=== PATIENT | male | born 1980 | race Caucasian/White ===

== ENCOUNTER 2017-07-22 14:24 | Emergency (ER) | END 2017-07-22 17:04 | disposition home or self-care (01) ==

== ENCOUNTER 2018-02-06 20:19 | Emergency (ER) | END 2018-02-07 02:55 | disposition home or self-care (01) ==

== ENCOUNTER 2019-02-24 16:02 | Emergency (ER) | payer SELFPAY ==
[~2019-02-24] VITALS: Ht 188 cm; Wt 132.6 kg
[~2019-02-24 16:02] MED LIST: CYCL10TA7 PO; LORA-441 PO
[2019-02-24 16:12] VITALS: BP 153/19; PULSE 89; RESP 20; Ht 188 cm; Wt 132.6 kg
--- NOTE | 2019-02-24 16:58 | ERD ---
ER Documentation Chief Complaint Chief Complaint Pt reports R arm nubness after sleeping, full ROM HPI 38-year-old male, presents the emergency department complaining of anxiety after experiencing right arm numbness for approximately 15 minutes after waking up. The patient denies weakness, he refers good recovery but he is requesting to have his heart and blood sugar checked out. He denies chest pain, no shortness of breath, no headache, no fever or chills. ROS All systems reviewed and are negative except as per history of present illness. Medications Home Meds Active Scripts Lorazepam* (Ativan*) 0.5 Mg Tablet, 0.5 MG PO DAILY PRN for ANXIETY, #10 TAB Prov:LATONIA BARKLEY MD 02/24/19 Cyclobenzaprine Hcl* (Cyclobenzaprine Hcl*) 10 Mg Tablet, 10 MG PO TID, #15 TAB Prov:EMMETT DOMINIQUE 02/07/18 Allergies Allergies: Coded Allergies: No Known Allergy (Unverified , 02/07/18) PMhx/Soc History of Surgery: No Anesthesia Reaction: No Hx Neurological Disorder: No Hx Respiratory Disorders: No Hx Cardiac Disorders: No Hx Psychiatric Problems: No Hx Miscellaneous Medical Probl: No Hx Alcohol Use: No Hx Substance Use: No Hx Tobacco Use: No Smoking Status: Never smoker FmHx Family History: No diabetes, No coronary disease Physical Exam Vitals Vital Signs Date Temp Pulse Resp B/P (MAP) Pulse Ox O2 O2 Flow FiO2 Time Delivery Rate 02/24/19 98.3 89 20 153/19 98 16:12 (63) Physical Exam Const: No acute distress Head: Atraumatic Eyes: Normal Conjunctiva ENT: Normal External Ears, Nose and Mouth. Neck: Full range of motion. No meningismus. Resp: Clear to auscultation bilaterally Cardio: Regular rate and rhythm, no murmurs Abd: Soft, non tender, non distended. Normal bowel sounds Skin: No petechiae or rashes Back: No midline or flank tenderness Ext: No cyanosis, or edema Neur: Awake and alert Psych: Normal Mood and Affect Results 24 hrs Laboratory Tests Test 02/24/19 17:00 Bedside Glucose 100 mg/dL EKG read by me: Rate/Rhythm: Regular rate and rhythm at a rate of 68 Intervals: Normal No acute ST changes. No T wave inversion Impression: No evidence of acute ischemia or arrhythmia Procedures/MDM Vital signs stable, Physical exam unremarkable, neurovascular exam intact. Differential diagnosis include but not limited to: Depression, anxiety, migraine, thyroid disease, electrolyte imbalance. Low suspicion for acute coronary event, aortic dissection, CVA. Pertinent Data: 12 Lead ECG: Sinus rhythm, no ST changes, normal T wave, normal intervals Physical examination and clinical presentation consistent most likely with paresthesia of the right arm causing anxiety. During the ED course the patient remained stable, no new complaints. Treatment options, results and clinical impression discussed with patient who agrees with management. The patient is stable to be treated outpatient and will be discharged home with a Rx for lorazepam, some side effects of prescribed medications (headache, rash, nausea, vomiting, diarrhea, drowsiness, habituation, bleeding, hypertension, interactions with other medications) were reviewed. The patient was instructed to follow up with the primary care provider in the next 48h. If symptoms persist, worsen or new symptoms develop, then patient should return to the ED immediately. Instructions explained and given directly by me to the patient with acknowledgment and demonstrated understanding. Disclaimer: Inadvertent spelling and grammatical errors are likely due to EHR/dictation software use and do not reflect on the overall quality of patient care. Also, please note that the electronic time recorded on this note does not necessarily reflect the actual time of the patient encounter. Departure Diagnosis: Primary Impression: Paresthesia of right arm Condition: Stable Patient Instructions: Paraesthesias Additional Instructions: Muchas lianne por [facility] para brooks servicio. Esperamos que en brooks visita a la babs de emergencia brooks problema medico haya sido solucionado y que se sienta mucho mejor. Para estar seguros que brooks mejoria sigue en proceso, le pedimos el favor de hacer monty ida de seguimiento medico con brooks doctor primario en los proximos 2-4 turner. Lleve con usted estos documentos y las medicinas recetadas. Si rolnad sintomas empeoran, NO SE ESPERE, por favor regrese a babs de emergencia INMEDIATAMENTE. En lui que usted no tenga un mdico de atencin primaria: Llame al mdico o clnica comunitaria de referencia que aparece abajo caro las horas de consultorio para hacer monty ida para que le vean. CLINICAS: [facility] [phone] [facility] [phone] [facility] [phone] [facility] [phone] [place] [id number] [phone] [facility]. [phone] LATONIA ROCHA MD Feb 24, 2019 16:58
== END 2019-02-24 17:23 | disposition home or self-care (01) ==
LOC: FTE 16:02
DX: R20.2 Paresthesia of skin (principal)
CPT/HCPCS: 82962; 93005